=== PATIENT | female | born 1995 | race Caucasian/White ===

== ENCOUNTER → 2020-08-10 13:16 | Outpatient (BNVA) | payer OTHER, SELFPAY | PROVIDERS: PCP Pediatrics; Visit Provider Internal Medicine | DX: S06.0X0A Concussion without loss of consciousness, initial encounter (principal); S00.83XA Contusion of other part of head, initial encounter; W50.1XXA Accidental kick by another person, initial encounter | CPT/HCPCS: 70450; 70486; 99203 ==

== ENCOUNTER → 2020-08-13 10:25 | Outpatient (BNVA) | payer OTHER, SELFPAY | PROVIDERS: PCP Pediatrics; Visit Provider Internal Medicine | DX: S06.0X0D Concussion without loss of consciousness, subsequent encounter (principal); X58.XXXD Exposure to other specified factors, subsequent encounter; H53.149 Visual discomfort, unspecified; F60.3 Borderline personality disorder | CPT/HCPCS: 99213 ==

== ENCOUNTER → 2020-08-20 11:09 | Outpatient (BNVA) | payer OTHER, SELFPAY | PROVIDERS: PCP Pediatrics; Visit Provider Internal Medicine | DX: S06.9X0D Unspecified intracranial injury without loss of consciousness, subsequent encounter (principal); X58.XXXD Exposure to other specified factors, subsequent encounter | CPT/HCPCS: 99213 ==

== ENCOUNTER → 2020-08-27 15:25 | Outpatient (BNVA) | payer OTHER, SELFPAY | PROVIDERS: PCP Pediatrics; Visit Provider Internal Medicine | DX: S06.9X0D Unspecified intracranial injury without loss of consciousness, subsequent encounter (principal); X58.XXXD Exposure to other specified factors, subsequent encounter | CPT/HCPCS: 99213 ==

== ENCOUNTER → 2020-09-10 09:06 | Outpatient (BNVA) | payer OTHER, SELFPAY | PROVIDERS: PCP Pediatrics; Visit Provider Physician Assistant Medical | DX: F43.0 Acute stress reaction (principal) | CPT/HCPCS: 99213 ==

== ENCOUNTER → 2020-09-17 08:38 | Outpatient (BNVA) | payer OTHER, SELFPAY | PROVIDERS: PCP Pediatrics; Visit Provider Physician Assistant Medical | DX: S06.9X0D Unspecified intracranial injury without loss of consciousness, subsequent encounter (principal); X58.XXXD Exposure to other specified factors, subsequent encounter; F43.0 Acute stress reaction | CPT/HCPCS: 99213 ==

== ENCOUNTER 2020-10-19 14:17 | Outpatient (REF) | payer OTHER, SELFPAY ==
--- NOTE | ~2020-10-19 | MR_ITS ---
EXAMINATION: MR BRAIN WITHOUT CONTRAST CLINICAL INFORMATION: Persistent aggression. Patient kicked in head. COMPARISON: Head CT from 08/10/2020. TECHNIQUE: Multiplanar, multisequence imaging of the brain was performed without contrast. FINDINGS: No diffusion abnormalities are identified to suggest an acute or subacute infarct. The ventricles are normal in size. No mass effect or midline shift is seen. No brain parenchymal signal abnormality is noted. No extra-axial fluid collections are seen. The brainstem and cerebellum are normal. The gradient refocused acquisition is normal. The craniovertebral junction, marrow signal, and midline structures are normal. The major intracranial flow voids at the level of the [place] of [place] are preserved. The dural venous sinus flow voids are maintained. The mastoid air cells and paranasal sinuses are well aerated. MR/MR head/brain wo con IMPRESSION: No acute process. Normal MRI of the brain.
== END 2020-10-19 14:18 | disposition home or self-care (01) ==
LOC: HO.MRI 14:17
PROVIDERS: Visit Provider Internal Medicine
DX: R45.6 Violent behavior (principal)
CPT/HCPCS: 70551

== ENCOUNTER 2023-10-28 10:48 | Emergency (ER) | payer BC, SELFPAY ==
[2023-10-28 11:00] VITALS: BP 118/77; PULSE 81; RESP 16; TEMP 36.9; O2SAT 99; BMI 26.6
--- NOTE | 2023-10-28 11:03 | ED_ITS ---
HPI - General Adult General Chief complaint: General Medical Stated complaint: sore throat-swelling r side Time Seen by Provider: 10/28/23 11:17 Source: patient Mode of arrival: ambulatory Limitations: no limitations History of Present Illness ED Provider: Trever Minaya PA-C HPI narrative: 28-year-old female history of strep in the past presents to ED for sore throat. Patient was seen by primary care provider earlier last week and was given antibiotics for sore throat with a not improve. Patient at that time tested negative for strep. Patient denies any coughing, fever, chills, nausea, or vomiting. Patient denies any recent dental work. Patient denies any chest pain or shortness of breath. Related Data Previous Rx's ?Medication ?Instructions ?Recorded naproxen 500 mg tablet 500 mg PO BID PRN pain 7 days #14 10/28/23 tabs prednisone 20 mg tablet 40 mg (2 x 20 mg) PO DAILY 5 days 10/28/23 #10 tabs Allergies Allergy/AdvReac Type Severity Reaction Status Date / Time No Known Allergies Allergy Verified 10/28/23 11:03 Review of Systems 2 Review of Systems: Sore throat Yes all other systems are reviewed and are negative PMFSH Social History Social History Advance Directives: No Advance Directives Information Provided: No Do you have a plan to hurt others: No Plan Physical Exam ED Vital Signs: Vital Signs - 24 hr 10/28/23 11:00 10/28/23 14:15 Temperature 98.5 F 97.2 F Pulse Rate 81 80 Respiratory Rate 16 14 Blood Pressure 118/77 109/66 Pulse Oximetry 99 98 Oxygen Delivery Method Room Air Room Air BMI result Body Mass Index 26.6 Const General: cooperative, healthy appearing, comfortable, no acute distress, well developed, alert, awake and Physically active Orientation/consciousness: oriented to person, oriented to place, oriented to time and patient oriented x3 HENMT Other: Negative forsign peritonsillar abscess Head: Yes normal to inspection, Yes No palpable skull fracture present, Yes normocephalic, Yes atraumatic and No abrasion Throat: Yes posterior oropharynx normal, Yes uvula midline and Yes abnormal tonsil (Bilateral tonsillar exudates. Both swollen. Uvula is midline. ) Eyes General: appearance normal, both eyes and all related structures Neck Neck: Yes normal visual inspection, Yes full ROM, Yes no lymphadenopathy, Yes no meningeal signs, Yes trachea midline, Yes supple, No anterior neck swelling and No tender Chest Chest palpation & inspection: normal inspection of the chest and normal palpation of entire chest wall Resp Effort & Inspection: normal respiratory effort and able to speak in complete sentences Auscultation: clear to auscultation bilaterally Cardio Jugular venous distension: no JVD Heart sounds: S1 normal heart sound present and S2 normal heart sound present GI Inspection: Yes normal to inspection Palpation (GI): Soft to palpation, not firm, nontender, no guarding and not rigid General: No CVA tenderness and Yes no CVA tenderness Back/Spine/Pelvis Back: no CVA tenderness, No CVA tenderness and No back tenderness Skin General skin exam: no rashes or lesions noted, elasticity normal and turgor normal Neuro General: oriented to person, oriented to place, oriented to time, patient oriented x3, gait normal, tone normal, moves all extremities, Normal light touch and pain sensation, no meningeal signs, no focal motor deficits, CN's II-XI intact bilaterally and normal sensation to monofilament Extrem General: Yes normal to inspection, Yes full ROM and Yes capillary refill normal Psych Appearance: grossly normal, well kempt and not disheveled Course Course Course Narrative: This is an RME performed by Fadi Smith CNP: Additional HPI, ROS, PE not included below will be deferred to primary provider. Patient is a 28-year-old female presents emergency department for evaluation of sore throat, onset was approximately 1 week ago, per progressively worsened 5 days ago presented to her primary care doctor's office had negative strep testing but was prescribed amoxicillin. She feels as though the right side of her throat is more swollen now. Feels as though her voice has changed due to this. She is able to breathe without difficulty. Has painful swallowing. Exam: Erythematous posterior oropharynx, 4+ tonsillar hypertrophy bilaterally with a copious exudates, uvula midline. No trismus. No drooling. Medications Administered Discontinued Medications Generic Name Dose Route Start Last Admin Trade Name Walterq PRN Reason Stop Dose Admin Dexamethasone 10 mg 10/28/23 12:30 10/28/23 12:33 Dexamethasone 2 Mg Tablet PO 10/28/23 12:31 10 mg ONCE ONE Administration Lorazepam 0.5 mg 10/28/23 12:10 10/28/23 12:17 Lorazepam 0.5 Mg Tablet PO 10/28/23 12:11 0.5 mg ONCE ONE Administration Medical Decision Making Medical Decision Making [facility] Narrative: 28 year female with tonsillitis physical exam does not indicate parents tonsillar abscess. Will test for mono and strep. Decadron ordered. 1:56pm: Patient is positive for mono. Liver enzymes elevated as expected with mono. Rest of labs normal. Patient is educated on mono leading to splenomegaly informed to stay away from any contact sports. Patient informed to follow-up with primary care provider. Patient explained worrisome signs and informed to return to the ED immediately. Not suspecting retropharyngeal abscess, peritonsillar abscess, or Zbigniew's angina. Differential Diagnosis Differential Diagnoses: The differential diagnosis associated with the presentation includes (Strep, mono) Admission/Observation Consideration of admission/observation: Escalation of care including admission/observation considered Lab Data [facility] Lab Attestation statement: I reviewed the patient's lab results. 10/28/23 13:02 10/28/23 13:02 Labs: Lab Results 10/28/23 Range/Units 13:02 WBC 10.8 (4.8-10.8) X10*3/uL RBC 4.13 L (4.20-5.50) X10*6/uL Hgb 12.1 (12.0-16.0) g/dl Hct 35.6 L (37.0-47.0) % MCV 86.2 (80.0-98.0) fL MCH 29.3 (27.0-33.0) pg MCHC 34.0 (31.0-35.0) g/dl RDW 12.8 (11.0-16.0) % Plt Count 192 D (160-400) X10*3/uL MPV 8.6 L (9.4-12.3) fL Immature Gran % (Auto) Cancelled Neut % (Auto) Cancelled Lymph % (Auto) Cancelled [place] % (Auto) Cancelled Eos % (Auto) Cancelled Baso % (Auto) Cancelled Lymph # (Auto) Cancelled [place] # (Auto) Cancelled Eos # (Auto) Cancelled Baso # (Auto) Cancelled Abs Immat Gran (auto) Cancelled Absolute Neuts (auto) Cancelled Absolute Nucleated RBC 0.000 (0.0-0.012) X10*3/uL Nucleated RBC % (auto) 0.0 (0.0-0.2) /100WBC Neutrophils % (Manual) 38 L (45-73) % Band Neutrophils % 0 L (3-5) % Lymphocytes % (Manual) 53 H (20-40) % Atypical Lymphs % (Man) 4 (0-6) % Monocytes % (Manual) 5 (2-11) % Abs Neuts (Manual) 4.1 (2.0-8.3) X10*3/uL Lymphocytes # (Manual) 5.7 H (1.2-4.9) X10*3/uL Atyp Lymphs # (Manual) 0.4 x10*3/uL Monocytes # (Manual) 0.5 (0.1-1.2) X10*3/uL Platelet Estimate NORMAL (NORMAL) Plt Morphology Comment NORMAL RBC Morphology NORMAL Sodium 140 (135-145) mmol/L Potassium 4.2 (3.3-5.1) mmol/L Chloride 110 H (96-108) mmol/L Carbon Dioxide 20 L (22-29) mmol/L Anion Gap 14 (12-20) BUN 7 L (9-16) mg/dL Creatinine 0.75 (0.5-1.4) mg/dL Estim Creat Clear Calc 112.5 Estimated GFR > 60 Random Glucose 82 (60-115) mg/dL Calcium 9.0 (8.4-10.2) mg/dL Total Bilirubin 0.2 (0.0-1.0) mg/dL AST 81 H (5-31) U/L ALT 147 H (0-31) U/L Alkaline Phosphatase 133 H (39-117) U/L Total Protein 7.3 (6.5-8.0) g/dL Albumin 4.0 (3.5-5.0) g/dL Monoscreen Positive A (Negative) S. pyogenes GrpA NIELS Negative (Negative) Independent Historian Clinical information obtained from an independent historian. History obtained from or confirmed by: Other (Patient) External Record Review External record reviewed: Other (prior visit) Prescription Management I considered prescription management with: Pain Medication Discharge Plan Discharge Clinical Impression: Ro[place] exposure Patient Disposition: Home, Self-Care Instructions: Mononucleosis (ED) Additional Instructions: You came back positive for mononucleosis. You are at risk of splenomegaly. Recommend no sports activity for at least a week. Recommend follow-up with your primary care provider before returning to any contact sports activity. Return to the ED immediately for any drooling, change in voice, inability tolerate solid food/liquid, fever, chills, chest pain, shortness of breath, or any other concerning symptoms. Prescriptions: New naproxen 500 mg tablet 500 mg PO BID PRN (Reason: pain) 7 Days Qty: 14 0RF prednisone 20 mg tablet 40 mg PO DAILY 5 Days Qty: 10 0RF Stand Alone Forms: Work/School Release Interventions: ED Discharge Assessment Last Done: 10/28/23 14:15 Discharge Date/Time: 10/28/23 14:16 Print Language: Icelandic
[2023-10-28] MEDS: LORazepam 0.5 MG TABLET PO (12:17)
[2023-10-28] MEDS: dexAMETHasone 2 MG TABLET 10 MG PO (12:33)
[2023-10-28 13:11] LABS: Hematocrit 35.6 % (37.0-47.0); Hemoglobin 12.1 g/dl (12.0-16.0); Mean Corpuscular Hemoglobin 29.3 pg (27.0-33.0); Mean Corpuscular Volume 86.2 fL (80.0-98.0); Mean Platelet Volume 8.6 fL (9.4-12.3); Platelet Count 192 X10*3/uL (160-400); Red Blood Count 4.13 X10*6/uL (4.20-5.50); Red Cell Distribution Width 12.8 % (11.0-16.0); White Blood Count 10.8 X10*3/uL (4.8-10.8)
[2023-10-28 13:24] LABS: Alanine Aminotransferase 147 U/L (0-31); Alkaline Phosphatase 133 U/L (39-117); Anion Gap 14 (12-20); Aspartate Amino Transferase 81 U/L (5-31); Bilirubin Total 0.2 mg/dL (0.0-1.0); Blood Urea Nitrogen 7 mg/dL (9-16); Carbon Dioxide 20 mmol/L (22-29); Chloride 110 mmol/L (96-108); Creatinine Clr Calc Pharmacy 112.5; Estimated Glomerular Filt Rate > 60; Glucose Random 82 mg/dL (60-115); Potassium 4.2 mmol/L (3.3-5.1); Sodium 140 mmol/L (135-145); Total Protein 7.3 g/dL (6.5-8.0)
[2023-10-28 13:25] LABS: Monotest Positive (Negative)
[2023-10-28 13:39] LABS: IDNOW Serial# 08D9AD1C; Strep A Nucleic Acid Negative (Negative)
[2023-10-28 13:50] LABS: Atypical Lymph Absolute Manual 0.4 x10*3/uL; Atypical Lymphs Percent Manual 4 % (0-6); Band Neutrophils Percent 0 % (3-5); Lymphocytes Absolute Manual 5.7 X10*3/uL (1.2-4.9); Lymphocytes Percent Manual 53 % (20-40); Monocytes Absolute Manual 0.5 X10*3/uL (0.1-1.2); Monocytes Percent Manual 5 % (2-11); Neutrophils Absolute Manual 4.1 X10*3/uL (2.0-8.3); Neutrophils Percent Manual 38 % (45-73); Platelet Estimate NORMAL (NORMAL); RBC Morphology NORMAL
[2023-10-28 14:15] VITALS: BP 109/66; PULSE 80; RESP 14; TEMP 36.2; O2SAT 98
[2023-10-28 14:27] LABS: Platelet Morphology Comment NORMAL
== END 2023-10-28 14:16 | disposition home or self-care (01) ==
PROVIDERS: Physician Assistant; Emergency Provider Emergency Medicine
DX: J02.9 Acute pharyngitis, unspecified (principal); Z79.899 Other long term (current) drug therapy
CPT/HCPCS: 80053; 85007; 85027; 86308; 87651; 96374; 96375; 99282; 99284; J8540

== ENCOUNTER 2024-06-23 14:38 | Emergency (ER) | payer BC, SELFPAY ==
--- NOTE | ~2024-06-23 | XR_ITS ---
EXAMINATION: XR CHEST CLINICAL INFORMATION: pain COMPARISON: 12/20/2022. TECHNIQUE: 2 views of the chest were obtained. FINDINGS: The cardiac, hilar, and mediastinal contours are normal. The lungs are clear bilaterally. There is no pneumothorax or pleural effusion. There is no focal osseous or soft tissue abnormality. XR/XR chest 2V IMPRESSION: Normal chest. Electronically signed by: Fantasma Blandon MD 06/23/2024 03:08 PM EDT
--- NOTE | 2024-06-23 14:38 | ECG_ITS ---
Test Reason : chest tightness Blood Pressure : */* mmHG Vent. Rate : 67 BPM Atrial Rate : 67 BPM P-R Int : 144 ms QRS Dur : 82 ms QT Int : 374 ms P-R-T Axes : 7 49 13 degrees QTcB Int : 395 ms Normal sinus rhythm Normal ECG No previous ECGs available Referred By: Gregor Quiñones Electronically Signed By: DEREK KOVACS MD
[2024-06-23 14:47] VITALS: BP 117/82; PULSE 75; RESP 18; TEMP 36.3; O2SAT 99; BMI 26.7
--- NOTE | 2024-06-23 14:49 | ED.GENADULT ---
HPI - General Adult General Chief complaint: Chest Pain Stated complaint: Chest Tightness X 3 Days Time Seen by Provider: 06/23/24 15:46 Source: patient, RN notes reviewed and old records reviewed Mode of arrival: ambulatory Limitations: no limitations History of Present Illness ED Provider: [facility] narrative: Patient is a 28-year-old female with history of thoracic outlet syndrome, TBI with subsequent chronic migraines, PTSD presenting to the emergency department with complaint of chest tightness since Sunday afternoon. Describes as a band around her chest. Denies shortness of breath or difficulty breathing. Denies abdominal pain, nausea, vomiting. Denies recent calf pain or swelling, recent travel, recent surgery or immobilization. Not on OCPs. Denies fevers. Called PCP office but due to jaw pain which she regularly experiences with her migraines, she was referred to the ED to rule out cardiac cause of symptoms. MD complaint: chest tightness Onset (ago): day(s) Related Data Previous Rx's ?Medication ?Instructions ?Recorded naproxen 500 mg tablet 500 mg PO BID PRN pain 7 days #14 10/28/23 tabs prednisone 20 mg tablet 40 mg (2 x 20 mg) PO DAILY 5 days 10/28/23 #10 tabs Allergies Allergy/AdvReac Type Severity Reaction Status Date / Time No Known Allergies Allergy Verified 06/23/24 14:49 Review of Systems Review of Systems: As per HPI Yes all other systems are reviewed and are negative Constitutional: Constitutional: Reports as per HPI COUNTS INCLUDE 234 BEDS AT THE [facility] Social History Social History Smoked in Last 30 Days: No Advance Directives: No Advance Directives Information Provided: No Do you have a plan to hurt others: No Plan Physical Exam ED Vital Signs: Vital Signs - 24 hr 06/23/24 14:47 06/23/24 15:36 Temperature 97.4 F 98.3 F Pulse Rate 75 68 Respiratory Rate 18 16 Blood Pressure 117/82 115/75 Pulse Oximetry 99 99 Oxygen Delivery Method Room Air Room Air BMI result Body Mass Index 26.7 Vital signs have been reviewed and appear to be correct. Blood pressure normal. Heart rate normal. Respiratory rate normal. Temperature normal. Oxygen saturation normal. Const General: cooperative, healthy appearing and no acute distress Orientation/consciousness: oriented to person, oriented to place, oriented to time and patient oriented x3 Limitations: no limitations HENMT Head: Yes normocephalic and Yes atraumatic Ears: external ears normal General nose exam: Normal external nose present Face and sinus: Yes face symmetric Mouth: oropharynx normal and moist mucous membranes Throat: Yes uvula midline Eyes Pupils: Equal, round and reactive pupils present Neck Neck: Yes normal visual inspection and Yes supple Resp Effort & Inspection: normal respiratory effort and able to speak in complete sentences Auscultation: clear to auscultation bilaterally Cardio Rate: regular rate Rhythm: regular rhythm Heart sounds: S1 normal heart sound present and S2 normal heart sound present Peripheral pulses: Peripheral pulses 2+ throughout GI Palpation (GI): Soft to palpation and nontender Auscultation: normoactive bowel sounds General: Yes no CVA tenderness Back/Spine/Pelvis Back: no CVA tenderness Skin General skin exam: elasticity normal and turgor normal Neuro General: oriented to person, oriented to place, oriented to time, patient oriented x3, moves all extremities, no focal motor deficits and CN's II-XI intact bilaterally Cranial nerves: Yes Equal, round and reactive pupils present Cognition (Neuro): normal cognition Extrem General: Yes full ROM, Yes no pedal edema and Yes no calf tenderness Psych Mental Status: mental status grossly normal Affect: normal affect Thought process: Normal thought process present Course Course Course Narrative: RME, this is a rapid medical exam performed by Bronson Quiñones please refer to primary provider for complete H&P- 28-year-old female presents for evaluation of chest tightness for 3 days. She denies shortness of breath, nausea vomiting. Denies any history of asthma. she reports family history of cardiac disease but no personal history. She is not on control, denies any recent travel. EKG ordered on arrival is normal sinus rhythm. Plan for labs and chest x-ray Medical Decision Making Medical Decision Making MDM Narrative: Patient is a 28-year-old female with history of thoracic outlet syndrome, PTSD presenting to the emergency department with complaint of chest tightness since Sunday afternoon. On exam patient is awake, A+Ox3, VS WNL, afebrile, normal neurological exam without focal deficits, physical exam findings as above. Given reported symptoms and physical exam findings, initial differential includes but is not limited to ACS, arrhythmia, pneumothorax, pleural effusion. Labs notable for no leukocytosis, no anemia, no electrolyte abnormalities, negative troponin. Viral serology negative. X-ray chest notable for no pneumothorax, no pneumonia. My interpretation is in agreement with the radiologist's interpretation. EKG shows normal sinus rhythm. Results discussed with patient and all questions answered. PERC score 0, PE unlikely. Offered to assess D-dimer which patient declined. Advised patient to follow up with PCP. Return precautions discussed at bedside. Patient verbalized understanding of and agreement with plan. Differential Diagnosis Differential Diagnoses: The differential diagnosis associated with the presentation includes As per [facility] Admission/Observation Consideration of admission/observation: Escalation of care including admission/observation considered Patient would have been admitted to the hospital had their work up had any findings where hospital admission was appropriate and their clinical presentation warranted hospital admission. Lab Data [facility] Lab Attestation statement: I reviewed the patient's lab results. As per [facility] 06/23/24 14:59 06/23/24 14:59 Labs: Lab Results 06/23/24 Range/Units 14:59 WBC 9.2 (4.8-10.8) X10*3/uL RBC 4.29 (4.20-5.50) X10*6/uL Hgb 12.8 (12.0-16.0) g/dl Hct 36.1 L (37.0-47.0) % MCV 84.1 (80.0-98.0) fL MCH 29.8 (27.0-33.0) pg MCHC 35.5 H (31.0-35.0) g/dl RDW 12.2 (11.0-16.0) % Plt Count 286 D (160-400) X10*3/uL MPV 9.1 L (9.4-12.3) fL Immature Gran % (Auto) 0.3 (0.0-0.4) % Neut % (Auto) 64.4 (45-73) % Lymph % (Auto) 27.7 (20-40) % Hill % (Auto) 6.8 (2-11) % Eos % (Auto) 0.5 (0-4) % Baso % (Auto) 0.3 (0-2) % Lymph # (Auto) 2.6 (1.2-4.9) X10*3/uL [place] # (Auto) 0.6 (0.1-1.2) X10*3/uL Eos # (Auto) 0.1 (0.0-0.4) X10*3/uL Baso # (Auto) 0.0 (0.0-0.2) X10*3/uL Abs Immat Gran (auto) 0.03 (0.00-0.03) X10*3/uL Absolute Neuts (auto) 5.9 (2.0-8.3) x10*3/uL Absolute Nucleated RBC 0.000 (0.0-0.012) X10*3/uL Nucleated RBC % (auto) 0.0 (0.0-0.2) /100WBC Sodium 140 (135-145) mmol/L Potassium 4.2 (3.3-5.1) mmol/L Chloride 108 (96-108) mmol/L Carbon Dioxide 24 (22-29) mmol/L Anion Gap 12 (12-20) BUN 10 (9-16) mg/dL Creatinine 0.75 (0.5-1.4) mg/dL Estim Creat Clear Calc 112.6 Estimated GFR > 60 Random Glucose 80 (60-115) mg/dL Calcium 9.6 D (8.4-10.2) mg/dL Total Bilirubin 0.3 (0.0-1.0) mg/dL AST 23 (5-31) U/L ALT 20 (0-31) U/L Troponin I High Sens < 2.7 (<3.5-17.0) ng/L Total Protein 7.4 (6.5-8.0) g/dL Albumin 4.6 (3.5-5.0) g/dL Lipase 19 (8-78) U/L Beta HCG, Quant < 2 mIU/mL Influenza Type A (PCR) NEGATIVE (Negative) Influenza Type B (PCR) NEGATIVE (Negative) RSV RNA Qual (PCR) NEGATIVE (Negative) SARS-CoV-2 RNA (RT-PCR) NEGATIVE (Negative) Independent Interpretation I performed an independent interpretation of an: EKG (When he sinus rhythm, rate 67 beats per minute, normal GA interval and QTC) and Plain X-Ray Interpretation: Chest x-ray is without evidence of pneumonia or pneumothorax. Radiology Impression Discussion of test interpretation with radiology: I have reviewed the radiologist's reading. Radiologist Impression: XR/XR chest 2V IMPRESSION: Normal chest. External Record Review External record reviewed: Inpatient record, Office record and Outpatient record Discharge Plan Discharge Clinical Impression: Chest pain Patient Disposition: Home, Self-Care Instructions: Chest Pain (DC) Additional Instructions: You were evaluated in the emergency department today for chest pain. Your evaluation has shown no signs of medical conditions requiring emergent intervention at this time, however we recommend that you follow-up with your primary care physician for further testing as an outpatient. Return to the emergency department if you experience worsening or uncontrolled chest pain, shortness of breath, lightheadedness, feeling faint, loss of consciousness, nausea, vomiting, or any other concerning symptoms. Prescriptions: No Action naproxen 500 mg tablet 500 mg PO BID PRN (Reason: pain) 7 Days Qty: 14 0RF prednisone 20 mg tablet 40 mg PO DAILY 5 Days Qty: 10 0RF Stand Alone Forms: Work/School Release Print Language: Cook Islander
[2024-06-23 15:05] LABS: MANUAL DIFF FLAG NO
[2024-06-23 15:23] LABS: Basophils Percent Auto 0.3 % (0-2); Eosinophils Absolute Auto 0.1 X10*3/uL (0.0-0.4); Eosinophils Percent Auto 0.5 % (0-4); Hematocrit 36.1 % (37.0-47.0); Hemoglobin 12.8 g/dl (12.0-16.0); Imm Gran Abs Auto 0.03 X10*3/uL (0.00-0.03); Imm Gran Pct Auto 0.3 % (0.0-0.4); Lymphocytes Absolute Auto 2.6 X10*3/uL (1.2-4.9); Lymphocytes Percent Auto 27.7 % (20-40); Mean Corpuscular HGB Conc 35.5 g/dl (31.0-35.0); Mean Corpuscular Hemoglobin 29.8 pg (27.0-33.0); Mean Corpuscular Volume 84.1 fL (80.0-98.0); Mean Platelet Volume 9.1 fL (9.4-12.3); Monocytes Absolute Auto 0.6 X10*3/uL (0.1-1.2); Monocytes Percent Auto 6.8 % (2-11); Neutrophils Absolute Auto 5.9 x10*3/uL (2.0-8.3); Neutrophils Percent Auto 64.4 % (45-73); Platelet Count 286 X10*3/uL (160-400); Red Blood Count 4.29 X10*6/uL (4.20-5.50); Red Cell Distribution Width 12.2 % (11.0-16.0); White Blood Count 9.2 X10*3/uL (4.8-10.8)
[2024-06-23 15:36] VITALS: BP 115/75; PULSE 68; RESP 16; TEMP 36.8; O2SAT 99
--- NOTE | 2024-06-23 15:41 | PC.NURSE ---
Patient is a 28 yo with a history of a TBI who presents with chest tightness under bilat breasts and her substernal area since Sunday. Lungs clear bilat. Respirations even and non-labored. Abdomen soft, non-tender with positive bowel sounds. Positive pedal pulses with no edema.
[2024-06-23 15:44] LABS: Alanine Aminotransferase 20 U/L (0-31); Albumin Level 4.6 g/dL (3.5-5.0); Anion Gap 12 (12-20); Aspartate Amino Transferase 23 U/L (5-31); Bilirubin Total 0.3 mg/dL (0.0-1.0); Blood Urea Nitrogen 10 mg/dL (9-16); Calcium 9.6 mg/dL (8.4-10.2); Carbon Dioxide 24 mmol/L (22-29); Chloride 108 mmol/L (96-108); Creatinine Clr Calc Pharmacy 112.6; Estimated Glomerular Filt Rate > 60; Glucose Random 80 mg/dL (60-115); HCG Quantitative < 2 mIU/mL; Lipase 19 U/L (8-78); Potassium 4.2 mmol/L (3.3-5.1); Sodium 140 mmol/L (135-145); Total Protein 7.4 g/dL (6.5-8.0); Troponin-I High Sensitivity < 2.7 ng/L (<3.5-17.0)
[2024-06-23 15:50] LABS: Influenza A PCR NEGATIVE (Negative); Influenza B PCR NEGATIVE (Negative); Resp Syncy Virus RNA Qual PCR NEGATIVE (Negative); SARS COV2 PCR INHOUSE NEGATIVE (Negative)
[2024-06-23 16:43] VITALS: BP 115/75; PULSE 68; RESP 16; TEMP 36.8; O2SAT 99
[2024-06-23 16:44] LABS: Alkaline Phosphatase 73 U/L (39-117)
== END 2024-06-23 16:44 | disposition home or self-care (01) ==
PROVIDERS: Physician Assistant; Emergency Provider Student in an Organized Health Care Education/Training Program
DX: R07.9 Chest pain, unspecified (principal); Z03.818 Encounter for observation for suspected exposure to other biological agents ruled out
CPT/HCPCS: 0241U; 36415; 71046; 80053; 83690; 84484; 84702; 85025; 93005; 99283; 99285

== ENCOUNTER → 2024-06-23 14:38 | Outpatient (BNV) | payer BC, SELFPAY | PROVIDERS: Emergency Provider Student in an Organized Health Care Education/Training Program; Visit Provider Internal Medicine Cardiovascular Disease | DX: R07.9 Chest pain, unspecified (principal) | CPT/HCPCS: 93010 ==

== ENCOUNTER → 2024-06-23 14:49 | Outpatient (BNV) | payer BC, SELFPAY | PROVIDERS: Emergency Provider Student in an Organized Health Care Education/Training Program; Visit Provider Radiology Diagnostic Radiology | DX: R07.9 Chest pain, unspecified (principal) | CPT/HCPCS: 71046 ==